=== PATIENT | female | born 1990 | race Caucasian/White ===

== ENCOUNTER 2017-08-18 09:30 | Inpatient (IN) | payer OTHER ==
[~2017-08-18] VITALS: Ht 162.6 cm; Wt 95.9 kg
[~2017-08-18 09:30] MED LIST: ACET500T98 PO; AZIT250T94 PO; GUAI118L94 PO; SODI44SP11 NS; ZOF8 PO
[2017-08-18 11:20] VITALS: BP 118/74; PULSE 93; RESP 20; Ht 162.6 cm; Wt 95.9 kg
[2017-08-18] MEDS: LACTATED RINGER'S 1,000 ML IV SCH ×2 (11:27→13:27)
[2017-08-18] MEDS ORDERED: OXYTOCIN 30 UNITS/LR 500 ML IV PRN (11:30)
[2017-08-18] MEDS ORDERED: CARBOPROST 250 MCG INJ IM PRN (11:30)
[2017-08-18] MEDS ORDERED: MISOPROSTOL 200 MCG TAB PR PRN (11:30)
[2017-08-18] MEDS ORDERED: METHYLERGONOVINE 0.2 MG INJ IM PRN (11:30)
[2017-08-18] MEDS ORDERED: LIDOCAINE 1% (MPF) 30 ML INJ INJ PRN (11:30)
[2017-08-18] MEDS ORDERED: OXYTOCIN 30 UNITS/LR 500 ML IV SCH (11:30)
[2017-08-18 12:31] LABS: BASOPHILS % 0.4 % (0.0-2.0); EOSINOPHILS # 0.2 10^3/ul (0.0-0.5); EOSINOPHILS % 1.6 % (0.0-7.0); HEMATOCRIT 32.2 % (37.0-47.0); HEMOGLOBIN 10.4 g/dl (12.0-16.0); LYMPHOCYTES % 20.2 % (15.0-51.0); MEAN CORPUSCULAR HEMOGLOBIN 26.7 pg (29.0-33.0); MEAN CORPUSCULAR HGB CONC 32.3 g/dl (32.0-37.0); MEAN CORPUSCULAR VOLUME 82.6 fl (82.0-101.0); MEAN PLATELET VOLUME 12.4 fl (7.4-10.4); MONOCYTE # 0.7 10^3/ul (0.3-0.9); MONOCYTES % 7.1 % (0.0-11.0); NEUTROPHIL # 6.9 10^3/ul (1.6-7.5); NEUTROPHILS % 70.2 % (39.0-77.0); PLATELET COUNT 256 10^3/UL (140-415); RED CELL DISTRIBUTION WIDTH 15.4 % (11.5-14.5); WHITE BLOOD COUNT 9.8 10^3/ul (4.8-10.8)
[2017-08-18 12:46] LABS: INR 0.98
[2017-08-18] MEDS ORDERED: BUTORPHANOL 2 MG INJ IV PRN (13:00)
[2017-08-18 13:07] LABS: PARTIAL THROMBOPLASTIN TIME 28.8 Sec (25.0-35.0)
[2017-08-18] MEDS: MISOPROSTOL 25 MCG CAPSULE PO SCH ×2 (13:27→18:20)
[2017-08-18] MEDS ORDERED: LACTATED RINGER'S 1,000 ML IV PRN (14:00)
[2017-08-18] MEDS: DEXTROSE 5%-LR 1,000 ML IV SCH ×2 (15:19→23:12)
[2017-08-18] MEDS ORDERED: DIPHENHYDRAMINE 50 MG INJ IV ONE (21:30)
[2017-08-19] MEDS: MISOPROSTOL 25 MCG CAPSULE PO SCH ×4 (02:09→20:45)
[2017-08-19] MEDS: LACTATED RINGER'S 1,000 ML IV SCH ×2 (07:30→08:48)
[2017-08-19] MEDS: DEXTROSE 5%-LR 1,000 ML IV SCH ×2 (07:43→20:44)
[2017-08-19] MEDS ORDERED: FENTAnyl 2MCG/ML-ROPIV 0.2% 100 ML ONE (08:23)
[2017-08-19] MEDS ORDERED: ONDANSETRON 4 MG INJ IV PRN ×2 (08:30→14:30)
[2017-08-19] MEDS ORDERED: FENTAnyl 2MCG/ML-ROPIV 0.2% 100 ML BAG EPI SCH (08:30)
[2017-08-19] MEDS ORDERED: NALOXONE (0.4 MG/ML) INJ IV PRN (08:30)
[2017-08-19] MEDS ORDERED: DIPHENHYDRAMINE 50 MG INJ IV PRN ×2 (08:30→14:30)
[2017-08-19] MEDS ORDERED: MINERAL OIL 240 ML LOT TOP ONE (13:30)
[2017-08-19] MEDS ORDERED: MINERAL OIL LIGHT 10 ML VIAL TOP ONE (13:30)
[2017-08-19] MEDS ORDERED: MINERAL OIL 133 ML ENEMA PR ONE (13:30)
[2017-08-19] MEDS: OXYTOCIN 30 UNITS/LR 500 ML IV SCH ×2 (14:23→18:04)
--- NOTE | 2017-08-19 14:28 | HP ---
Date/Time of Note Date/Time of Note DATE: 08/19/17 TIME: 14:10 OB - History Hx of Present Free Text/Dictation IUP at 38 weeks with late diagnosis of GDM due to patient being not compliant and traveling out of states : 2 Para: 1 Care: Limited Care Ultrasounds: Normal mid trimester US, Abnormal US findings Obstetrical Complications: Gestational Diabetes Medical Complications: None Past Family/Social History * Past Medical, Surgical, Family and Obstetric Histories reviewed from chart. OB Admission Exam Vital Signs Vital Signs Vital Signs Date Time Temp Pulse Resp B/P Pulse Ox O2 Delivery O2 Flow Rate FiO2 08/18/17 11:20 98.2 93 20 118/74 Room Air Physical Exam HEENT: WNL Heart: Rhythm Normal Lungs: Clear, Equal Abdomen: WNL Extremities: Normal Reflexes: Normal Last 72 hourBlood Glucose Bedside Glucose - 72 Hours Test 08/18/17 14:25 08/18/17 19:26 08/18/17 23:10 08/19/17 01:24 Bedside Glucose 73mg/dL (70-220) 77mg/dL (70-220) 65mg/dL (70-220) L 76mg/dL (70-220) Test 08/19/17 03:37 08/19/17 07:35 08/19/17 11:55 Bedside Glucose 111mg/dL (70-220) 71mg/dL (70-220) 72mg/dL (70-220) Last 72 hours Lab Results CBC & BMP 08/18/17 11:00 OB Assessment/Plan Other Assessment: s/p Plan: Expectant Management RADHA LOVE MD Aug 19, 2017 14:12
--- NOTE | 2017-08-19 14:29 | LDN ---
Date/Time of Note Date/Time of Note DATE: 08/19/17 TIME: 14:12 Delivery Summary I arrived shortly after . delivery was done by laborist Dr. Richardson. s/p of viable male with APGARS 8/9. baby came out with placenta. the cord was double clamped and cut. 2nd degree perineal laceration was repaired in normal fashion. placenta delivered intact and spontaneously Placenta Delivered: Spontaneously Meconium: none Perineal laceration: 2 Laceration repair: repaired in normal fashion Anesthesia type: Epidural Sponge & Needle done & correct: Yes All needle counts correct: Yes Any foreign bodies felt in the: No Problems: Infant Delivery Information Sex Sex: male Apgars 1 Minute: 8 5 Minute: 9 Suctioning Nose & mouth suctioned at maliha: Yes Delee suction performed: Yes Umbilical Cord Umbilical cord with: 3 Vessels Cord presentations: no nuchal cord Cord Blood was obtained: Yes Mother & Baby Disposition Disposition Mom & Baby to Maternity; Good: Yes RADHA LOVE MD Aug 19, 2017 14:25
[2017-08-19] MEDS ORDERED: ONDANSETRON 4 MG TAB PO PRN (14:30)
[2017-08-19] MEDS ORDERED: BENZOCAINE 20% 56 ML SPRAY TOP PRN (14:30)
[2017-08-19] MEDS ORDERED: HYDROCODONE/APAP (5/325) TAB PO PRN ×2 (14:30)
[2017-08-19] MEDS ORDERED: DIPHENHYDRAMINE 25 MG CAP PO PRN (14:30)
[2017-08-19] MEDS ORDERED: OXYTOCIN 30 UNITS/LR 500 ML IV PRN (14:30)
[2017-08-19] MEDS ORDERED: DIBUCAINE 1% 30 GM OINT PR PRN (14:30)
[2017-08-19] MEDS ORDERED: SENNA/DOCUSATE NA (8.6MG/50MG) TAB PO PRN (14:30)
[2017-08-19] MEDS ORDERED: MAGNESIUM HYDROXIDE 30ML CUP PO PRN (14:30)
[2017-08-19] MEDS ORDERED: WITCH HAZEL/GLYCERIN PAD PR PRN (14:30)
[2017-08-19] MEDS ORDERED: LANOLIN 7 GM TUBE TOP PRN (14:30)
[2017-08-19] MEDS ORDERED: MISOPROSTOL 200 MCG TAB PR PRN (14:30)
[2017-08-19] MEDS ORDERED: NA PHOSPHATE/BIPHOS 133 ML ENEMA PR PRN (14:30)
[2017-08-19] MEDS ORDERED: CARBOPROST 250 MCG INJ IM PRN (14:30)
[2017-08-19 16:00] VITALS: BP 146/72; PULSE 78; RESP 18
[2017-08-19] MEDS: IBUPROFEN 600 MG TAB PO SCH ×2 (17:06→23:52)
[2017-08-19 17:33] VITALS: BP 117/76; PULSE 79; RESP 18
[2017-08-19 20:00] VITALS: BP 120/69; PULSE 97; RESP 19
[2017-08-19] MEDS: LACTATED RINGER'S 1,000 ML IV* SCH ×2 (20:44→22:23)
[2017-08-19] MEDS: SENNA/DOCUSATE NA (8.6MG/50MG) TAB PO SCH (21:40)
[2017-08-20] VITALS: BP 124/72; PULSE 99; RESP 19
[2017-08-20] MEDS: LACTATED RINGER'S 1,000 ML IV* SCH (02:03)
[2017-08-20 04:05] VITALS: BP 120/67; PULSE 97; RESP 19
[2017-08-20] MEDS: IBUPROFEN 600 MG TAB PO SCH ×3 (05:30→17:34)
--- NOTE | 2017-08-20 07:57 | DS ---
Date/Time of Note Date/Time of Note DATE: 08/20/17 TIME: 07:57 Obstetrical Discharge Record Final Diagnosis Final Diagnosis: Term delivered Vaginal Delivery Obstetrical Delivery: Spontaneous Complications Gestational Diabetes Induction: Yes Condition on Discharge Physical Assessment Voiding: Yes Bowel Movement: Yes Breast: Soft, non-tender, Filling Fundus: Firm Abdomen and Incision: soft, not tender Calf Tenderness: No Patient Condition: Good RADHA LOVE MD Aug 20, 2017 07:57
[2017-08-20 08:00] VITALS: BP 109/57; PULSE 80; RESP 18
[2017-08-20] MEDS: SENNA/DOCUSATE NA (8.6MG/50MG) TAB PO SCH ×2 (08:35→21:00)
[2017-08-20] MEDS ORDERED: INFLUENZA VIRUS VACCINE 0.5 ML (DISPENSING) IM* ONE (09:00)
[2017-08-20 11:03] LABS: BASOPHILS % 0.3 % (0.0-2.0); EOSINOPHILS # 0.2 10^3/ul (0.0-0.5); EOSINOPHILS % 1.6 % (0.0-7.0); HEMATOCRIT 28.8 % (37.0-47.0); HEMOGLOBIN 8.9 g/dl (12.0-16.0); LYMPHOCYTES # 2.2 10^3/ul (0.8-2.9); LYMPHOCYTES % 17.8 % (15.0-51.0); MEAN CORPUSCULAR HEMOGLOBIN 25.5 pg (29.0-33.0); MEAN CORPUSCULAR HGB CONC 30.9 g/dl (32.0-37.0); MEAN CORPUSCULAR VOLUME 82.5 fl (82.0-101.0); MEAN PLATELET VOLUME 11.9 fl (7.4-10.4); MONOCYTES % 7.7 % (0.0-11.0); NEUTROPHILS % 71.9 % (39.0-77.0); PLATELET COUNT 194 10^3/UL (140-415); RED BLOOD COUNT 3.49 10^6/ul (4.20-5.40); RED CELL DISTRIBUTION WIDTH 15.7 % (11.5-14.5); WHITE BLOOD COUNT 12.6 10^3/ul (4.8-10.8)
[2017-08-20 16:12] VITALS: BP 126/62; PULSE 98; RESP 18
[2017-08-20 20:00] VITALS: BP 117/60; PULSE 94; RESP 20
[2017-08-21] MEDS: IBUPROFEN 600 MG TAB PO SCH ×3 (00:16→11:56)
[2017-08-21 04:00] VITALS: BP 120/71; PULSE 93; RESP 20
[2017-08-21 08:25] VITALS: BP 123/73; PULSE 95; RESP 19
[2017-08-21] MEDS ORDERED: MEASLES,MUMPS,RUBELLA VACCINE INJ SC* ONE (09:00)
[2017-08-21] MEDS ORDERED: DIPHTH/TET/ACEL PERTUSS (ADULT) 0.5 ML VIAL IM* ONE (09:00)
[2017-08-21] MEDS ORDERED: VARICELLA VACCINE LIVE/PF 1,350 UNIT/0.5 ML ML SC* ONE (09:00)
[2017-08-21] MEDS: SENNA/DOCUSATE NA (8.6MG/50MG) TAB PO SCH (09:21)
== END 2017-08-21 16:17 | disposition home or self-care (01) | DRG 775 ==
LOC: L-D 10:21 → PP1 08-19 15:56
PROVIDERS: ADMIT Specialist; ATTEND Specialist
PROC: 10E0XZZ Delivery of Products of Conception, External Approach (ICD-10-PCS; principal; 2017-08-19)
PROC: 0KQM0ZZ Repair Perineum Muscle, Open Approach (ICD-10-PCS; 2017-08-19)
PROC: 3E0P3VZ Introduction of Hormone into Female Reproductive, Percutaneous Approach (ICD-10-PCS; 2017-08-19)
DX: O24.429 Gestational diabetes mellitus in childbirth, unspecified control (principal); O70.1 Second degree perineal laceration during delivery; Z3A.38 38 weeks gestation of pregnancy; Z37.0 Single live birth
CPT/HCPCS: 62319; 82962; 85025; 85610; 85730; 86592; 86900; 86901; 87340; 90686; 90715; 90716; J0595; J1200; J2590; J3010; J7120; J7121

== ENCOUNTER 2017-11-09 17:52 | Emergency (ER) | END 2017-11-09 19:41 | disposition home or self-care (01) ==

== ENCOUNTER 2019-02-05 17:31 | Emergency (ER) | payer MEDICAID, OTHER ==
[~2019-02-05] VITALS: Wt 8.0 kg
[~2019-02-05 17:31] MED LIST changes: +ACET500C5 PO; -ACET500T98 PO; -AZIT250T94 PO; +DICY10CA40 PO; -GUAI118L94 PO; +IBUP-1542 PO; +ONDA4TAB14 PO; -SODI44SP11 NS; -ZOF8 PO
[2019-02-05 17:33] VITALS: BP 158/85; PULSE 88; RESP 18
[2019-02-05] MEDS ORDERED: KETOROLAC 60 MG INJ IM STA (18:49)
[2019-02-05] MEDS ORDERED: ONDANSETRON (ODT) 4 MG TAB ODT STA (18:49)
[2019-02-05] MEDS ORDERED: HYDROCODONE/APAP (5/325) TAB PO ONE (19:00)
[2019-02-05] MEDS ORDERED: IBUP-1542 PO (19:38)
[2019-02-05] MEDS ORDERED: ACET1TAB40 PO (19:38)
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
== END 2019-02-05 20:02 | disposition home or self-care (01) ==
LOC: FTE 17:31
DX: S33.5XXA Sprain of ligaments of lumbar spine, initial encounter (principal); S13.9XXA Sprain of joints and ligaments of unspecified parts of neck, initial encounter; V49.40XA Driver injured in collision with unspecified motor vehicles in traffic accident, initial encounter
CPT/HCPCS: 72040; 72100; 81025; 96372; J1885; Z7502; Z7610

== ENCOUNTER 2019-05-27 23:32 | Emergency (ER) | payer MEDICAID ==
[~2019-05-27] VITALS: Ht 162.6 cm; Wt 96.0 kg
[~2019-05-27 23:32] MED LIST changes: +ACET1TAB40 PO; +CYCL10TA7 PO; +IBUP800T48 PO
[2019-05-27 23:35] VITALS: Ht 162.6 cm; Wt 96.0 kg
[2019-05-28] MEDS ORDERED: KETOROLAC 30 MG INJ IM STA (01:45)
--- NOTE | 2019-05-28 01:45 | ERD ---
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 LMP: May 28, 2019. A0. Denies headache, head injury, loss of consciousness, dizziness, neck pain, neck stiffness, throat pain, difficulty swallowing, difficulty breathing lying flat, shoulder pain, chest pain, back pain, abdominal pain, nausea, vomiting, constipation, diarrhea, urinary symptoms, or possibility being , loss of bowel and bladder control, difficulty walking due to pain, numbness or tingling sensation, calf pain, recent travel, recent major surgery in the last 3 weeks, calf pain, recent long travel, recent exposure to any illness, recent antibiotic use in the last 3 months, fever, chills, seizures. Past medical history: Left corneal transplant. Surgical history: Left corneal transplant. Social: Denies smoking, use of alcoholic beverages, use of illegal drugs. ROS All systems reviewed and are negative except as per history of present illness. Medications Home Meds Active Scripts Cyclobenzaprine Hcl* (Cyclobenzaprine Hcl*) 10 Mg Tablet, 10 MG PO TID PRN for MUSCLE SPASMS, #15 TAB Prov:TWIN SUAZO F 05/28/19 Ibuprofen* (Motrin*) 800 Mg Tab, 800 MG PO Q6H PRN for PAIN AND OR ELEVATED TEMP, #30 TAB Prov:DANNIE SUAZOAR F 05/28/19 Acetaminophen with Codeine (Acetaminophen-Cod #3 Tablet) 1 Each Tablet, 1 TAB PO Q6H, #10 TAB Prov:BECKIE KEARNS MD 02/05/19 Ibuprofen* (Motrin*) 600 Mg Tab, 600 MG PO Q6, #20 TAB Prov:BECKIE KEARNS MD 02/05/19 Dicyclomine HCl (Dicyclomine HCl) 10 Mg Capsule, 20 MG PO QID, #20 CAP Prov:VLADISLAV GREER NP 11/09/17 Ondansetron (Ondansetron Odt) 4 Mg Tab.rapdis, 4 MG PO Q6H PRN for NAUSEA AND/OR VOMITING, #20 TAB Prov:VLADISLAV GREER NP 11/09/17 Acetaminophen* (Tylophen*) 500 Mg Capsule, 1 CAP PO Q6H PRN for PAIN AND OR ELEVATED TEMP, #20 CAP Prov:VLADISLAV GREER. [employer] 11/09/17 Ibuprofen* (Motrin*) 600 Mg Tab, 600 MG PO Q6H PRN for PAIN AND OR ELEVATED TEMP, #30 TAB Prov:VLADISLAV GREER. [employer] 11/09/17 Allergies Allergies: Coded Allergies: No Known Drug Allergies (Verified Allergy, Unknown, 06/14/15) PMhx/Soc Medical and Surgical Hx: pt denies Medical Hx, pt denies Surgical Hx History of Surgery: Yes (CORNEAL IMPLANT) Anesthesia Reaction: No Hx Neurological Disorder: No Hx Respiratory Disorders: No Hx Cardiac Disorders: No Hx Psychiatric Problems: No Hx Miscellaneous Medical Probl: No Hx Alcohol Use: No Hx Substance Use: No Hx Tobacco Use: No Smoking Status: Never smoker Physical Exam Vitals Vital Signs Date Temp Pulse Resp B/P (MAP) Pulse Ox O2 O2 Flow FiO2 Time Delivery Rate 05/28/19 98.1 77 18 117/62 98 Room Air 03:31 (80) 05/27/19 97.8 87 18 138/75 99 23:35 (96) Physical Exam Const: No acute distress Head: Atraumatic Eyes: Normal Conjunctiva ENT: Normal External Ears, Nose and Mouth. Neck: Full range of motion. No meningismus. Resp: Clear to auscultation bilaterally Cardio: Regular rate and rhythm, no murmurs Abd: Soft, non tender, non distended. Normal bowel sounds Skin: No petechiae or rashes Back: No midline or flank tenderness. C-spine/T-spine/L-spine are midline with good and full range of motion and is no swelling/deformity/bulging/point of tenderness/midline tenderness. Ext: No cyanosis, or edema. Left wrist: Mild swelling. No obvious deformity. Pain to range of motion. Full range of motion. Has good presser hand. No neurovascular deficit. Left forearm: Unremarkable. Left hand: Unremarkable. Left elbow: Unremarkable. Left shoulder: Unremarkable. Right upper extremity is unremarkable. Neur: Awake and alert Psych: Normal Mood and Affect Results 24 hrs Laboratory Tests Test 05/28/19 02:01 05/28/19 02:35 POC Beta HCG, Qualitative NEGATIVE Bedside Urine pH (LAB) 7.0 Bedside Urine Protein (LAB) 1+ Bedside Urine Glucose (UA) Negative Bedside Urine Ketones (LAB) Negative Bedside Urine Blood 2+ Bedside Urine Nitrite (LAB) Negative Bedside Urine Leukocyte Esterase (L Negative Current Medications Medications Dose Sig/Mark Start Time Status Last (Trade) Ordered Route PRN Stop Time Admin Dose Reason Admin Ketorolac 30 mg ONCE STAT 05/28/19 DC 05/28/19 Tromethamine IM 01:45 02:10 (Toradol) 05/28/19 01:46 Procedures/MDM Diagnostic tests: POC urine : Negative. POC urine: Reviewed. X-ray of the left wrist: No acute abnormality. Treatment: Toradol IM. Velcro splint. Re-evaluation: No neurovascular deficit prior to and after the application of Velcro splint. Stated that she feels much better this time and that she is ready to go home. Stated that she is comfortable to go home. Differential diagnosis I have low suspicion for displaced fracture, compartment syndrome, open fracture. Final diagnosis: Wrist sprain. Prescription: Motrin. Flexeril. Follow-up with PCP in the next 24-48 hours. Come back here in the emergency department for any new symptoms or any worsening symptoms. All questions and concerns were answered. Patient and family members verbalized understanding and agreed with plan of care. Hemodynamically stable on discharge. Departure Diagnosis: Primary Impression: Wrist injury Additional Impression: Pain in wrist Condition: Stable Additional Instructions: Follow-up with PCP in the next 24-48 hours. Come back here in the emergency department for any new symptoms or any worsening symptoms. TWIN SUAZO May 28, 2019 01:45
[2019-05-28 03:31] VITALS: BP 117/62; PULSE 77; RESP 18
== END 2019-05-28 03:36 | disposition home or self-care (01) ==
LOC: FTE 23:32
DX: S69.92XA Unspecified injury of left wrist, hand and finger(s), initial encounter (principal); X50.0XXA Overexertion from strenuous movement or load, initial encounter; Y92.89 Other specified places as the place of occurrence of the external cause
CPT/HCPCS: 29125; 73110; 81003; 81025; 96372; J1885; Z7502; Z7610